=== PATIENT | female | born 1980 | race Caucasian/White ===

== ENCOUNTER → 2024-07-25 | Day surgery (SDC) | payer MEDICAID ==
[~2024-07-25] MED LIST: LIDOCAINE HCL/PF 1% 10 MG/ML 5ML VIAL ONE; SODIUM BICARBONATE 4% 2.4MEQ/5ML VIAL IV ONE
== END | disposition home or self-care (01) ==
LOC: EDUNIT# 09:00 → RAD 09:02
PROVIDERS: ATTEND Surgery Surgical Oncology
DX: D24.2 Benign neoplasm of left breast (principal); Z79.899 Other long term (current) drug therapy; Z98.890 Other specified postprocedural states
CPT/HCPCS: 19281; J2003; J3490; A4648

== ENCOUNTER → 2024-07-27 | Day surgery (SDC) | payer MEDICAID ==
[~2024-07-27] VITALS: Ht 152.4 cm; Wt 55.3 kg
[~2024-07-27] MED LIST changes: +BUPIVACAINE HCL/PF 0.5% (5MG/ML) 10ML ONE; +CEFAZOLIN SODIUM 1000MG/VIAL ONE; +EPHEDRINE SULFATE 50MG/ML VIAL ONE; +FENTANYL CITRATE/PF 50MCG/ML 2ML VIAL ONE; +HYDROMORPHONE HCL/PF 1MG/ML INJ IV PRN; +HYDROMORPHONE HCL/PF 1MG/ML INJ ONE; +LACTATED RINGERS 1,000 ML IV SCH; +LIDOCAINE HCL/EPINEPHRINE 1%-EPI 1:100,000 20ML VIAL ONE; -LIDOCAINE HCL/PF 1% 10 MG/ML 5ML VIAL ONE; +MIDAZOLAM HCL 2 MG/2 ML VIAL ONE; +ONDANSETRON HCL 4MG/2ML INJ IV PRN; +ONDANSETRON HCL 4MG/2ML INJ ONE; +PROPOFOL 200MG/20ML VIAL IV ONE; -SODIUM BICARBONATE 4% 2.4MEQ/5ML VIAL IV ONE
[2024-07-27 08:45] LABS: UCG SCREEN NEGATIVE
[2024-07-27] MEDS: ONDANSETRON HCL 4MG/2ML INJ IV PRN (13:27)
== END | disposition home or self-care (01) ==
LOC: OR 08:15
PROVIDERS: ATTEND Surgery Surgical Oncology
DX: N62 Hypertrophy of breast (principal); Z79.899 Other long term (current) drug therapy; Z98.890 Other specified postprocedural states
CPT/HCPCS: 19125; 76098; 81025; 88305; J3010; J0665; J0690; J3490; J2004; J2250; J2405; J2704; J1171; A4606